=== PATIENT | male | born 1945 | race Caucasian/White ===

== ENCOUNTER 2022-05-04 08:52 | Day surgery (SDC) | payer OTHER ==
[2022-05-04] MEDS ORDERED: Ringers Lactate 1,000 ML IV ONE (09:29)
[2022-05-04 10:07] VITALS: O2SAT 100
[2022-05-04] MEDS ORDERED: GENTAMICIN SULF 80 MG/2ML INJ ONE (10:56)
[2022-05-04] MEDS ORDERED: GLUCAGON 1 MG/VIAL ONE (10:56)
[2022-05-04] MEDS ORDERED: GLYCOPYRROLATE 0.2 MG/ML SYR ONE (11:18)
[2022-05-04] MEDS ORDERED: propofoL 200 MG/20 ML VIAL IV ONE (11:18)
[2022-05-04] MEDS ORDERED: LIDOCAINE 1% MPF 5 ML VIAL ONE (11:18)
[2022-05-04] MEDS ORDERED: FENTANYL CITR 100 MCG/2 ML ONE (11:18)
[2022-05-04] MEDS ORDERED: NA CHLORIDE 0.9% 50 ML ONE (13:06)
[2022-05-04] MEDS ORDERED: CEFAZOLIN SODIUM 2 GM/VIAL ONE (13:06)
[2022-05-04] MEDS ORDERED: CEFAZOLIN SODIUM 2 GM in NA CHLORIDE 0.9% 100 ML IVPB ONE (13:12)
--- NOTE | 2022-05-04 13:41 | RAD REPORT ---
EXAM DESCRIPTION: Fluoroscopy for ERCP CLINICAL HISTORY: ERCP Abdominal pain FINDINGS: Fluoroscopic images submitted from ERCP procedure. Details and diagnostic findings of the procedure are not available. Total fluoroscopy time: 683 seconds.
[2022-05-04 13:54] VITALS: TEMP 97.3
[2022-05-04 13:57] VITALS: BP 127/47
--- NOTE | 2022-05-05 07:57 | EKG ---
Test Date: 2022-05-04 Test Time: 10:35:30 Pin Setter: NGA MEASUREMENT RESULTS: Intervals: Rate: 44 WV: 256 QRSD: 130 QT: 588 QTc: 502 [place]: P: 84 WV: 256 QRS: -73 T: 29 INTERPRETIVE STATEMENTS: Marked sinus bradycardia with 1st degree AV block with occasional premature ventricular complexes Left axis deviation Left ventricular hypertrophy with QRS widening Cannot rule out Septal infarct, age undetermined Abnormal ECG Compared to ECG 01/12/2017 06:50:30 Ventricular premature complex(es) now present Left-axis deviation now present Left ventricular hypertrophy now present Atrial premature complex(es) no longer present Left anterior fascicular block no longer present Myocardial infarct finding still present Electronically Signed On 05-05-22 07:54:43 SPEECH WRITER by Sukhwinder Betts
== END 2022-05-04 14:03 | disposition home or self-care (01) ==
LOC: OR 08:52
PROVIDERS: ATTEND Internal Medicine Gastroenterology
PROC: 0F7D8DZ Dilation of Pancreatic Duct with Intraluminal Device, Via Natural or Artificial Opening Endoscopic (ICD-10-PCS; principal; 2022-05-04 10:30)
DX: K80.50 Calculus of bile duct without cholangitis or cholecystitis without obstruction (principal); R10.9 Unspecified abdominal pain; R94.5 Abnormal results of liver function studies; K86.89 Other specified diseases of pancreas; R10.13 Epigastric pain; R93.3 Abnormal findings on diagnostic imaging of other parts of digestive tract
CPT/HCPCS: 43274; 93005; J2704; J1610; J2001; J1580; J3010; J7120; C1769 ×2; C2625; 76000

== ENCOUNTER 2022-05-20 06:19 | Observation (INO) | payer OTHER ==
--- NOTE | 2022-05-19 14:50 | RAD REPORT ---
EXAM DESCRIPTION: RAD - Chest Single View - 05/19/2022 2:38 pm CLINICAL HISTORY: Preop COMPARISON: Chest Single View dated 01/10/2017; CHEST SINGLE VIEW dated 10/12/2010; CHEST PA AND LAT 2 VIEW dated 10/11/2010; CHEST PA AND LAT 2 VIEW dated 01/09/2004 FINDINGS: Lines: None. Lungs: No evidence of edema or pneumonia. Pleural: No significant pleural effusions or pneumothorax. Cardiac: The heart size is within normal limits. Mediastinum: Within normal limits. Bones: No acute fractures. Other: None IMPRESSION: No acute cardiopulmonary disease.
[2022-05-20] MEDS ORDERED: Ringers Lactate 1,000 ML IV ONE ×3 (06:54→09:14)
[2022-05-20] MEDS ORDERED: CEFOXITIN SODIUM 1 GM/VIAL ONE (06:54)
[2022-05-20] MEDS ORDERED: ROCURONIUM 50 MG/5 ML VIAL IV ONE (07:27)
[2022-05-20] MEDS ORDERED: propofoL 200 MG/20 ML VIAL IV ONE (07:27)
[2022-05-20] MEDS ORDERED: dexAMETHasone 10 MG/ML VIAL ONE (07:27)
[2022-05-20] MEDS ORDERED: KETOROLAC 30 MG/ML INJ ONE ×2 (07:27→10:43)
[2022-05-20] MEDS ORDERED: FENTANYL CITR 100 MCG/2 ML ONE (07:27)
[2022-05-20] MEDS ORDERED: ONDANSETRON 4 MG/2 ML VIAL ONE (07:28)
[2022-05-20] MEDS ORDERED: LIDOCAINE 2% MPF 5 ML VIAL ONE (07:28)
[2022-05-20] MEDS ORDERED: BUPIVACAINE 0.5% PF 10 ML VIAL ONE (07:32)
[2022-05-20] MEDS ORDERED: GLYCOPYRROLATE 0.2 MG/ML SYR ONE ×4 (08:16→10:35)
[2022-05-20] MEDS ORDERED: HYDRALAZINE HCL 20 MG/ML VIAL ONE (08:56)
[2022-05-20] MEDS ORDERED: NS 0.9% VIAL 10 ML ONE ×2 (08:57→09:09)
[2022-05-20] MEDS ORDERED: VECURONIUM 10 MG/VIAL IV ONE (09:09)
[2022-05-20] MEDS ORDERED: SUGAMMADEX SODIUM 200 MG/2 ML VIAL IV ONE (09:14)
[2022-05-20] MEDS ORDERED: NEOSTIGMINE 1 MG/ML -10 ML VIAL ONE (09:43)
[2022-05-20] MEDS ORDERED: HYDROCODONE/APAP 5/325 MG TAB PO PRN (10:04)
--- NOTE | 2022-05-20 10:21 | P.OP ---
Date of Service: 05/20/22 Preop diagnosis: Acute and chronic cholecystitis, choledocholithiasis and status post ERCP with stent placement Postop diagnosis: Same Procedure performed: Laparoscopic cholecystectomy Surgeon: Azam Porter MD Shotweld Operator: MU Mora Estimated blood loss: 50 cc Specimen: Gallbladder Findings: As above Anesthesia: General Complications: None Drains: None Fluids and blood products: Nonapplicable Disposition: Recovery room Operative note: Patient brought to the OR and placed in the supine position. General anesthesia begun. Patient prepped and draped in the usual sterile fashion. Marcaine 0.5% infiltrated locally. 15 blade used to make a 1 cm supraumbilical midline incision. Subcutaneous tissue divided. Fascia identified and divided. #1 Vicryl stay suture placed. Peritoneal cavity entered with sharp and blunt dissection. 12 mm trocar placed into the peritoneal cavity under direct vision. Pneumoperitoneum established and 5 mm trocar placed in the epigastric region just to the right of midline. Two 5 mm trocars placed in the right subcostal region. Laparoscopy revealed chronic inflammation of the gallbladder. Fundus identified and retracted superiorly. Infundibulum identified and retracted inferolaterally. There were a few adhesions near the gallbladder which were taken down with sharp and blunt dissection and bleeding controlled cautery. Cystic duct and cystic artery identified and inderjit applied. Both structures divided. Cautery used to remove the gallbladder from the liver bed. There was some oozing noted from the liver bed. Gallbladder was removed via Endo Catch bag through the umbilicus. Right upper quadrant examined. There was still oozing noted from the liver bed. Cautery was utilized as necessary and then Avitene and Surgicel applied in the standard fashion this area observed at for at least 10 minutes. There was no further evidence of oozing noted. On irrigation there was clear effluent there was no evidence of any bleeding or bile leakage appreciated. All trocars removed under direct vision. Stay sutures tied to each other to reapproximate the fascial defect. Subcutaneous wounds irrigated and bleeding controlled cautery. 3-0 chromic used to reapproximate subcu tissue and close skin. Sterile dressing applied. Patient awakened and taken to recovery room in good general condition. CC: Dr. Bingham's office
[2022-05-20] MEDS: FENTANYL CITR 100 MCG/2 ML ONE ×3 (10:25→10:48)
[2022-05-20 12:16] LABS: Hematocrit 29.9 % (39.6-49.0)
[2022-05-20] MEDS ORDERED: ONDANSETRON 4 MG/2 ML VIAL IV PRN (12:46)
[2022-05-20] MEDS: HYDROMORPHONE HCL 1 MG/ML INJ IV PRN ×2 (13:23→16:48)
[2022-05-20] MEDS: NACHLORIDE 0.45% 1,000 ML IV SCH (15:17)
[2022-05-20 15:19] VITALS: BMI 22.4
--- OUTSIDE RECORDS SUMMARY | 2022-05-20 15:48 | XMS REPORT | Continuity of Care Document ---
:1945 Author Organization [facility] t Address [address] [place] [address] Care Team Providers Name Role Phone Pcp, Patient Does Not Have A Primary Care Physician +[id number] Andrei Graham MD Attending Clinician Cheyanne Greco RN Attending Clinician Unavailable Doctor Unassigned, [facility] Attending Clinician Unavailable Only, Ang Db Test Attending Clinician Unavailable Aaliyah YOUNGPAlaina Attending Clinician ALAINA FISCHER Attending Clinician Unavailable Therapy, [facility] Covid Infusion Attending Clinician Unavailable Stanford Vizcaino MD Attending Clinician STANFORD VIZCAINO Attending Clinician Unavailable CHAITANYA OUSLLIVAN Attending Clinician Unavailable Chaitanya Osullivan PA-C Attending Clinician Tommy Kramer MA Attending Clinician Unavailable Payers Payer Name Policy Type Policy Number Effective Date Expiration Date S ource Problems Condition Condition Condition Status Onset Resolution Last Treating Co mments Source Name Details Category Date Date Treatment Clinician Date Essential Essential Disease Active [facility] hypertensi hypertensi 9-24 [facility] on on 00:00: Hospita 00 l Abnormal Abnormal Disease Active 2016-03 [facility] di stress stress 1-28 st test test 00:00: Hospita 00 l CAD in CAD in Disease Active 2016-03 [facility] wales 0-24 st artery artery 00:00: Hospita 00 l Atrial Atrial Disease Active [facility] fibrillati fibrillati 5-16 st on on 00:00: Hospita 00 l Coronary Coronary Disease Active [facility] di arterioscl arterioscl 5-16 st erosis in erosis in 00:00: Hosp linda wales wales 00 l artery artery Presence Presence Disease Active [facility] di of stent of stent -16 st in in 00:00: Hospita coronary coronary 00 l artery artery Allergies, Adverse Reactions, Alerts Allergy Allergy Status Severity Reaction(s) Onset Inactive Treating Comm ents Source Name Type Date Date Clinician NO KNOWN Drug Active Univers ALLERGIE Class ity of [facility] Family History Family Member Diagnosis Comments Start Date Stop Date Source Natural father [facility] Natural mother [facility] Social History Social Habit Start Date Stop Date Quantity Comments Source Exposure to Not sure [facility]-CoV-2 [facility] (event) [facility] Alcohol intake 2018-04-03 2018-04-03 Current drinker [facility] 00:00:00 00:00:00 of alcohol (finding) Tobacco use and 2016-08-09 2016-08-09 Smokeless tobacco [facility] exposure 00:00:00 00:00:00 non-user Sex [birth year] [facility] 00:00:00 00:00:00 Smoking Status Start Date Stop Date Source Unknown if ever smoked [facility] Never smoked tobacco [facility] Medications Ordered Filled Start Stop Current Ordering Indication Dosage Frequency Signature Comments Components Source Medication Medication Date Date Medication? Clinician (SIG) Name Name sotaloL 2021-03 Yes TAKE 1 [facility] (BETAPACE) 1-[address] 80 MG 00:00: TWICE A Hospita tablet 00 DAY l cyanocobala Yes 2500ug QD Place Met h[facility] min, 08-24 2,[address] vitamin 10:34: under the Hospi ta B-12, 5,000 19 tongue l mcg tablet, daily. sublingual ferrous Yes 324mg QD Take 324 [facility] di gluconate 5-[address] (FERGON) 10:34: mouth Hospita 324 MG 19 daily with l tablet breakfast. cholecalcif Yes Take by Met hodi barron, 08-[address] vitamin D3, 10:34: Hospit a 10 mcg (400 19 l unit) capsule atorvastati 2022-0 Yes 10mg QD Take 10 mg Methodi n (LIPITOR) 5-[address] 10 mg 10:34: daily. Hospita tablet 19 l Xarelto 20 Yes TAKE 1 Meth[facility] di mg tablet 4-[address] 00:00: DAILY Hospita 00 l amLODIPine Yes TAKE 1 Meth[facility] di (NORVASC) 5 1-05 TABLET(5 st mg tablet 00:00: MG) BY Hospit a 00 MOUTH l DAILY amLODIPine Yes TAKE 1 Metho di (NORVASC) 5 1-05 TABLET(5 st mg tablet 00:00: MG) BY Hospit a 00 MOUTH l DAILY cyanocobala 2020-[address] Met damien min, 30 2,[address] vitamin 13:35: under the Hospi ta B-12, 5,000 47 tongue l mcg tablet, daily. sublingual ferrous 2020-03 Yes 324mg QD Take 324 Meth[facility] di gluconate 1-[address] (FERGON) 13:35: mouth Hospita 324 MG 47 daily with l tablet breakfast. cholecalcif 2020-03 Yes Take by Met damien mart, [address] vitamin D3, 13:35: Hospit a (VITAMIN 47 l D3) 400 unit capsule atorvastati 2020-03 Yes 20mg QD Take 1 Meth dee n (LIPITOR) 1-30 tablet (20 st 20 mg 00:00: mg total) Hospita tablet 00 by mouth l daily. Default OP ins sotaloL 2020-03 Yes 80mg Q.5D Take 1 [facility] (BETAPACE) 1-30 tablet (80 st 80 MG 00:00: mg total) Hospita tablet 00 by mouth 2 l (two) times a day. amLODIPine 2020-03- No 10mg QD Take 1 Meth dee (NORVASC) 1-30 12- tablet (10 st 10 mg 00:00: 05:59 mg total) Hospit a tablet 00 :00 by mouth l daily. sotaloL 2020-03- No 80mg Q.5D Take 1 [facility] (BETAPACE) 1-30 11-22 tablet (80 st 80 MG 00:00: 00:00 mg total) Hospit a tablet 00 :00 by mouth 2 l (two) times a day. atorvastati 2020-03 No 20mg QD Take 1 Met hodi n (LIPITOR) 04-25 tablet (20 s t 20 mg 00:00: 00:00 mg total) Hospit a tablet 00 :00 by mouth l daily. Default OP ins amLODIPine 2020-03 No 10mg QD Take 1 Meth dee (NORVASC) 04-25 tablet (10 st 10 mg 00:00: 00:00 mg total) Hospit a tablet 00 :00 by mouth l daily. atorvastati 2020-03 No 10mg QD Take 0.5 M ethodi n (LIPITOR) 04-[address] 20 mg 00:00: 00:00 (10 mg Hospita tablet 00 :00 total) by l mouth daily. Default OP ins sotaloL 2020-03 No TAKE 1 [facility] (BETAPACE) 04-[address] 80 MG 00:00: 00:00 TWICE A Hospita tablet 00 :00 DAY l omeprazole 2020-03 Yes [facility] (PriLOSEC) 03-27 st 20 MG 00:00: Hospita capsule 00 l famotidine 2020-03 Yes [facility] (PEPCID) 20 03-27 st MG tablet 00:00: Hospita 00 l omeprazole 2020-03 Yes [facility] (PriLOSEC) 03-27 st 20 MG 00:00: Hospita capsule 00 l famotidine 2020-03 Yes [facility] (PEPCID) 20 03-27 st MG tablet 00:00: Hospita 00 l casirivimab 2020- No [id number] 1200mg 1,200 mg, Univers -imdevimab 11-25 Subcutaneo it y of (REGEN-COV 01:00: 21:48 us, ONCE, [place] (EUA[place] 00 :00 1 dose, Medical injection Tue Branch 1,200 mg 11/24/20 at 2000, Routine casirivimab 2020- No [id number] 1200mg 1,200 mg, Univers -imdevimab 11-25 Subcutaneo it y of (REGEN-COV 01:00: 21:48 us, ONCE, [place] (EUA)) 00 :00 1 dose, Medical injection Tue Branch 1,200 mg 11/24/20 at 1999, Routine casirivimab 2020- No [id number] 1200mg 1,200 mg, [facility] -imdevimab 11-25 Subcutaneo it y of (REGEN-COV 01:00: 21:48 us, ONCE, [place] (EUA)) 00 :00 1 dose, Medical injection Tue Branch 1,200 mg 11/24/20 at 1999, Routine atorvastati 2020- No 10mg QD Take 0.5 M ethodi n (LIPITOR) 7-14 11-[address] 20 mg 00:00: 00:00 (10 mg Hospita tablet 00 :00 total) by l mouth daily. Default OP ins Xarelto 20 Yes 20mg QD Take 1 Metho di mg tablet 5-03 tablet ( 00:00: mg total) Hospita 00 by mouth l daily. Xarelto 20 2021- No 20mg QD Take 1 Meth dee mg tablet 07-27 04-18 tablet ( st 00:00: 00:00 mg total) Hospita 00 :00 by mouth l daily. Xarelto 20 2020- No 20mg QD Take 1 Meth dee mg tablet 07-13 05-03 tablet ( 00:00: 00:00 mg total) Hospita 00 :00 by mouth l daily. Xarelto 20 2020- No TAKE 1 Meth dee mg tablet 04-03 04-[address] 00:00: 00:00 DAILY Hospita 00 :00 l amLODIPine 2020- No 5mg QD Take 1 Meth dee (NORVASC) 5 1-05 11-30 tablet (5 st mg tablet 00:00: 00:00 mg total) Ho spita 00 :00 by mouth l daily. sotaloL 2019-03- No TAKE 1 [facility] (BETAPACE) 2-11 11-[address] 80 MG 00:00: 00:00 TWICE A Hospita tablet 00 :00 DAY l nitroglycer 2016-[id number] 1 [facility] in 0-[address] (NITROSTAT) 00:00: (0.4 mg Hos marcus 0.4 MG SL 00 total) l tablet under the tongue every 5 (five) minutes as needed for chest pain. nitroglycer 2016-[id number] 1 [facility] in 0-[address] (NITROSTAT) 00:00: (0.4 mg Hos marcus 0.4 MG SL 00 total) l tablet under the tongue every 5 (five) minutes as needed for chest pain. atorvastati No 20mg QD Take 1 Met hodi n (LIPITOR) 16 07-14 tablet (20 s t 20 MG 00:00: 00:00 mg total) Hospit a tablet 00 :00 by mouth l daily. Default OP ins Vital Signs Vital Name Observation Time Observation Value Comments Source Systolic blood 2020-11-24 22:33:00 135 mm[Hg] [facility] Diastolic blood 2020-11-24 22:33:00 59 mm[Hg] [facility] 2020-11-24 22:33:00 42 /min [facility] Body temperature 2020-11-24 22:33:00 36.11 [facility] rate 2020-11-24 22:33:00 21 /min [facility] Oxygen saturation in 2020-11-24 22:33:00 98 /min [facility] Arterial blood by [facility] Pulse oximetry Branch Body weight 2020-11-24 21:30:00 74.844 kg [facility] BMI 2020-11-24 21:30:00 22.38 kg/m2 [facility] Body height 2020-11-24 21:30:00 182.9 cm [facility] Systolic blood 2021-08-24 15:30:00 179 mm[Hg] Method ist Hospital pressure Diastolic blood 2021-08-24 15:30:00 72 mm[Hg] [facility] pressure Heart rate 2021-08-24 15:30:00 40 /min [facility] Body height 2021-08-24 15:30:[facility] weight 2021-08-24 15:30:00 80.287 kg [facility] BMI 2021-08-24 15:30:00 24.01 kg/m2 [facility] Systolic blood 2021-02-23 19:33:00 198 mm[Hg] Method [facility] Hospital pressure Diastolic blood 2021-02-23 19:33:00 77 mm[Hg] [facility] dist Hospital pressure Heart rate 2021-02-23 19:33:00 42 /min [facility] Body height 2021-02-23 19:33:00 182.9 cm [facility] Body weight 2021-02-23 19:33:00 79.379 kg [facility] BMI 2021-02-23 19:33:00 23.73 kg/m2 [facility] Procedures This patient has no known procedures. Plan of Care Planned Activity Planned Date Details Comments Source Future Scheduled 2022-03-10 COVID-19 VACCINE (#1) [facility] Test 06:36:25 [code = COVID-19 VACCINE (#1)] Future Scheduled 2022-03-10 65+ [facility] Test 06:36:25 VACCINE (1 - PCV) [code = 65+ PNEUMOCOCCAL VACCINE (1 - PCV)] Future Scheduled 2022-03-10 Hepatitis C screening [facility] Test 06:36:25 (procedure) [code = 692618951] Future Scheduled 2022-03-10 SHINGLES VACCINES (1 Met [facility] Test 06:36:25 of 2) [code = SHINGLES VACCINES (1 of 2)] Future Scheduled 2022-03-10 INFLUENZA VACCINE Method [facility] Test 06:36:25 [code = INFLUENZA VACCINE] Future Scheduled 2021-03-31 COVID-19 VACCINE (1) Met [facility] Test 07:53:51 [code = COVID-19 VACCINE (1)] Future Scheduled 2021-03-31 65+ [facility]CCAL [facility] Test 07:53:51 VACCINE (1 of 2 - PPSV23) [code = 65+ PNEUMOCOCCAL VACCINE (1 of 2 - PPSV23)] Future Scheduled 2021-03-31 Hepatitis C screening [facility] Test 07:53:51 (procedure) [code = 105886696] Future Scheduled 2021-03-31 [facility] Test 07:53:51 [code = COLONOSCOPY SCREENING] Future Scheduled 2021-03-31 SHINGLES VACCINES (#1) [facility] Test 07:53:51 [code = SHINGLES VACCINES (#1)] Future Scheduled 2021-03-31 INFLUENZA VACCINE Method [facility] Test 07:53:51 [code = INFLUENZA VACCINE] Encounters Start End Encounter Admission Attending Care Care Encounter Source Date/Time Date/Time Type Type Clinicians Facility Department ID 2022-02-15 2022-02-15 Refflorence Graham, 1.2.840.1 [id number] [facility] 00:00:00 00:00:[address] 3.430.2.7 Hospit a .3.168363 l .8 2021-08-24 2021-08-24 Office William 1.2.840.1 [id number] [facility] 10:30:00 14:12:59 Visit Andrei Herrera 07180.1.[address] 3.430.2.7 Hospit a .3.872852 l .8 2021-08-24 2021-08-24 Travel 1.2.840.1 1.2.311.488 [id number] [facility] 00:00:00 00:00:[address] 3.430.2.7 0.2.7.3.698 Ho spita .3.770534 084.8 l .8 2021-08-24 2021-08-24 [facility] [id number] [place] 00:00:00 00:00:00 ANDREI [address] 2021-07-09 2021-07-09 Refill William, 1.2.840.1 [id number] [facility] 00:00:00 00:00:00 Andre[address]Juvenal [address]01.[address] 3.430.2.7 Hospit a .3.561598 l .8 2021-03-31 2021-03-31 Refill William 1.2.840.1 [id number] [facility] 00:00:00 00:00:[address] 3.430.2.7 Hospit a .3.546810 l .8 2021-02-23 2021-02-23 Office William, 1.2.840.1 [id number] [facility] 13:22:39 16:28:37 Visit Andrei Herrera 59653.1.[address] 3.430.2.7 Hospit a .3.314388 l .8 2021-02-23 2021-02-23 Travel 1.2.840.1 1.2.290.165 [id number] [facility] 00:00:00 00:00:[address] 3.430.2.7 0.2.7.3.698 Ho spita .3.955315 084.8 l .8 2021-02-22 2021-02-22 Refill William 1.2.840.1 [id number] [facility] 00:00:00 00:00:[address] 3.430.2.7 Hospit a .3.531482 l .8 2021-01-22 2021-01-22 Letter CHAITANYA Greco 1.2.840.114 [id number] Univers 00:00:00 00:00:00 (Out) Cheyanne MANZO 350.1.13.10 it y of HOSPITAL 4.2.7.2.686 Dioni as [phone] [facility] 019 Branch 2021-01-22 2021-01-22 Letter Doctor TAVARES 1.2.840.114 [id number] Univers 00:00:00 00:00:00 (Out) Unassigned, ANAIS 350.1.13.10 ity of [facility] 4.2.7.2.686 Dioni as [id number] [facility] 044 Branch 2021-01-22 2021-01-22 Letter Doctor TAVARES 1.2.840.114 [id number] Univers 00:00:00 00:00:00 (Out) Unassigned, ANAIS 350.1.13.10 ity of [facility] 4.2.7.2.686 Dioni as [id number] [facility] 044 Branch 2021-01-21 2021-01-21 Laboratory Only, Ang Db Test [facility] 1.2.8 40.114 [id number] Univers 09:53:06 10:04:44 Only Alaina Fischer [facility] 350.1.13.10 ity of [facility] 4.2.7.2.686 Dioni as YASSINE?BLEA [phone] [address] MEDICAL OFFICE BUILDING 2021-01-21 2021-01-21 Outpatient R AALIYAH [facility] [id number] Univers 10:00:00 10:00:00 [facility] 2020-11-24 2020-11-24 Nurse Therapy, Adc Covid Infusion [facility] 1.2.840.114 [id number] Univers 15:35:22 16:35:22 Visit Stanford Vizcaino 350.1.13.10 ity [facility] 4.2.7.2.686 [place] [phone] [facility] 053 Branch 2020-11-24 2020-11-24 Outpatient R RIC [facility] [id number] Univers 16:30:00 16:30:00 STANFORD [facility] 2020-11-23 2020-11-23 CHAITANYA Gallardo 1.2.840.114 [id number] Univers 00:00:00 00:00:00 (Out) Cheyanne MANZO 350.1.13.10 it y of [facility] 4.2.7.2.686 Dioni as [phone] [address] 2020-11-23 2020-11-23 Letter CHAITANYA Greco 1.2.840.114 [id number] Univers 00:00:00 00:00:00 (Out) Cheyanne MANZO 350.1.13.10 it y of [facility] 4.2.7.2.686 Dioni as [phone] [address] 2020-11-22 2020-11-22 Outpatient R JAMIE [facility] [id number] Univers 12:00:00 12:00:00 CHAITANYA shine [facility] 2020-11-22 2020-11-22 Laboratory Only, Ang Db Test [facility] 1.2.8 40.114 [id number] [facility] 11:13:44 11:23:44 Only Chaitanya Osullivan [facility] 350.1.13.10 ity [facility] 4.2.7.2.686 Dioni as Yassine?Blea [phone] [address] Medical Office Building 2020-10-07 2020-10-07 Refill William 1.2.840.1 [id number] [facility] 00:00:00 00:00:[address] 3.430.2.7 Hospit a .3.681904 l .8 2020-07-27 2020-07-27 Orders Tommy Kramer 1.2.840.1 [id number] [facility] 00:00:00 00:00:[address] 3.430.2.7 Hospit a .3.906608 l .8 2020-07-13 2020-07-13 Sasha Graham 1.2.840.1 [id number] [facility] 00:00:00 00:00:[address] 3.430.2.7 Hospit a .3.873211 l .8 2020-04-21 2020-04-21 Outpatient [facility] [id number] [address] 00:00:00 00:00:[address] 2020-03-31 2020-03-31 Outpatient WILLIAM [facility] [id number] [address] [place] [address] 00:00:00 00:00:00 ANDREI [address] Results This patient has no known results.
[2022-05-20] MEDS: CEFOXITIN 1 GM in NA CHLORIDE 0.9% 50 ML IVPB SCH (16:48)
[2022-05-20 19:11] LABS: Hematocrit 32.2 % (39.6-49.0)
[2022-05-20] MEDS ORDERED: ATORVASTATIN 10 MG TAB PO SCH (21:00)
[2022-05-20 22:15] VITALS: O2SAT 98
[2022-05-20] MEDS: HYDROCODONE/APAP 7.5/325 MG TAB PO PRN (22:21)
[2022-05-21] MEDS: CEFOXITIN 1 GM in NA CHLORIDE 0.9% 50 ML IVPB SCH ×2 (00:55→05:24)
[2022-05-21] MEDS: NACHLORIDE 0.45% 1,000 ML IV SCH ×2 (01:10→02:20)
[2022-05-21 04:33] VITALS: TEMP 97.8
[2022-05-21] MEDS: HYDROCODONE/APAP 7.5/325 MG TAB PO PRN ×2 (05:28→10:45)
[2022-05-21 06:27] LABS: Hematocrit 29.7 % (39.6-49.0); Lymphocytes % 5.9 % (15.3-44.8); MCV 91.6 fL (80-100); MPV 9.3 fL (7.6-11.3); RBC Red Blood Cell Count 3.24 M/uL (4.33-5.43)
[2022-05-21] MEDS ORDERED: PANTOPRAZOLE 40MG TABLET PO SCH (06:30)
[2022-05-21 06:43] LABS: Albumin 2.5 g/dL (3.4-5.0); Bilirubin Total 1.2 mg/dL (0.2-1.0); Magnesium 2.1 mg/dL (1.6-2.4); Phosphorus 2.8 mg/dL (2.5-4.9); Potassium 3.9 mmol/L (3.5-5.1); Protein, Total 5.5 g/dL (6.4-8.2)
[2022-05-21] MEDS ORDERED: SOTALOL HCL 80 MG TAB PO SCH (09:00)
[2022-05-21] MEDS ORDERED: CYANOCOBALAMIN 1,000 MCG TAB PO SCH (09:00)
[2022-05-21 12:06] VITALS: BP 116/45
--- NOTE | 2022-05-21 16:53 | DS ---
Date of Discharge: 05/21/2022 Addendum: Essentially patient had increased pain after surgery. Because of the bleeding event encou ntered during surgery, I checked an H and H. His H and H was little lower than preop. Therefore, we kept him for observation for parenteral pain management and monitoring his H and H which was done. His H and H have remained stable at around 10 and 30 on three different occasions. His pain is contr olled on p.o. pain medications. He is afebrile. He is tolerating diet. He is ambulating. Therefor e, patient will be discharged to home. Patient was advised not to start his blood thinners until he is seen in the office. The discharge instructions that were given yesterday and they are still the s edinson. /MODL Voice ID: [id number] Report ID: [id number]
[2022-05-21] MEDS ORDERED: RIVAROXABAN 20 MG TABLET PO SCH (17:00)
== END 2022-05-21 11:55 | disposition home or self-care (01) ==
LOC: OR 06:19 → 2ND 15:13
PROVIDERS: ADMIT Surgery; ATTEND Surgery
PROC: 0FT44ZZ Resection of Gallbladder, Percutaneous Endoscopic Approach (ICD-10-PCS; principal; 2022-05-20 08:15)
DX: K80.46 Calculus of bile duct with acute and chronic cholecystitis without obstruction (principal); G89.18 Other acute postprocedural pain; D64.9 Anemia, unspecified
CPT/HCPCS: 85025; 36415; 83735; 84100; 82947; 88304; 85018 ×2; 85014 ×2; 80053; 71045; 47562; J0360; J2704; J2710; J2001; J3010 ×2; J1100; A4216 ×2; J1170 ×2; J7120 ×3; J0694 ×4; J2405; G0378; G0379

== ENCOUNTER 2022-08-03 08:14 | Day surgery (SDC) | payer OTHER ==
[2022-08-03] MEDS ORDERED: Ringers Lactate 1,000 ML IV ONE (08:25)
[2022-08-03] MEDS ORDERED: GLUCAGON 1 MG/VIAL ONE (09:53)
[2022-08-03] MEDS ORDERED: propofoL 200 MG/20 ML VIAL IV ONE ×2 (10:00→10:01)
[2022-08-03] MEDS ORDERED: LIDOCAINE 1% MPF 5 ML VIAL ONE (10:01)
[2022-08-03] MEDS: GENTAMICIN SULF 80 MG/2ML INJ ONE ×2 (10:20→10:22)
[2022-08-03] MEDS ORDERED: GLYCOPYRROLATE 0.2 MG/ML SYR ONE (10:21)
[2022-08-03] MEDS ORDERED: CEFAZOLIN SODIUM 1 GM/VIAL ONE (11:20)
[2022-08-03 11:33] VITALS: TEMP 97
[2022-08-03 11:34] VITALS: BP 112/44; O2SAT 98
--- NOTE | 2022-08-03 15:25 | RAD REPORT ---
EXAM DESCRIPTION: RAD - Fluoroscopy ERCP - 08/03/2022 10:50 am CLINICAL HISTORY: ERCP W/ STENT REMOVAL COMPARISON: Fluoroscopy <1 Hour dated 05/04/2022 FINDINGS/IMPRESSION: For intraoperative fluoroscopic images were submitted. Contrast can be seen inj ected into the common bile duct. Fluoro time: 110.7 seconds
== END 2022-08-03 12:15 | disposition home or self-care (01) ==
LOC: OR 08:14
PROVIDERS: ATTEND Internal Medicine Gastroenterology
PROC: 0FPB8DZ Removal of Intraluminal Device from Hepatobiliary Duct, Via Natural or Artificial Opening Endoscopic (ICD-10-PCS; principal; 2022-08-03 09:45)
DX: K80.50 Calculus of bile duct without cholangitis or cholecystitis without obstruction (principal); R10.13 Epigastric pain; R10.11 Right upper quadrant pain; R10.33 Periumbilical pain; R94.5 Abnormal results of liver function studies; D50.9 Iron deficiency anemia, unspecified; D80.0 Hereditary hypogammaglobulinemia
CPT/HCPCS: J0690; J1580; J1610; J2001; J2704; J7120